=== PATIENT | female | born 1990 | race Caucasian/White ===

== ENCOUNTER 2019-12-13 20:06 | Emergency (ER) | payer MEDICAID, OTHER ==
[~2019-12-13] VITALS: Ht 157 cm; Wt 82.0 kg
[~2019-12-13 20:06] MED LIST: ACHYD1T PO; ALBU8.5H2 IH; AZIT-21 PO; AZIT250T81 PO; DCS100C PO; Docusate Sodium PO; FAMO-119 PO; HYDR-3156 PO; HYDR-3720 PO; HYDR-700 PO; HYDR25CA5 PO; IBP800T PO; Ibuprofen PO; LORA0.5T PO; MULT-241 PO; PRD20T PO; SULF1TAB35 PO; TRAM50TA2 PO
[2019-12-13] MEDS ORDERED: hydrALAZINE (APESOLINE) 20 MG/ML VIAL IV ONE ×2 (20:30→21:30)
[2019-12-13] MEDS ORDERED: hydrOXYzine (ATARAX) 10 MG TAB PO ONE (20:30)
[2019-12-13] MEDS ORDERED: hydrOXYzine (VISTARIL/ATARAX) 25 MG capsule/tablet ONE (20:31)
[2019-12-13] MEDS ORDERED: hydrOXYzine (VISTARIL/ATARAX) 25 MG capsule/tablet PO STA (20:41)
[2019-12-13 20:53] LABS: BASOPHILS % (AUTO) 0 % (0-10); EOSINOPHILS # (AUTO) 0.1 10^3/uL (0.0-0.3); EOSINOPHILS % (AUTO) 1 % (0-10); HEMATOCRIT 41 % (35-52); HEMOGLOBIN 13.9 G/DL (11.5-16.0); LYMPHOCYTES # (AUTO) 2.2 X 10^3 (1.0-4.0); LYMPHOCYTES % (AUTO) 19 % (12-44); MEAN CORPUSCULAR HEMOGLOBIN 29 PG (25-34); MEAN CORPUSCULAR HGB CONC 34 G/DL (32-36); MEAN CORPUSCULAR VOLUME 86 FL (80-99); MEAN PLATELET VOLUME 10.5 FL (7.4-10.4); MONOCYTES # (AUTO) 0.6 X 10^3 (0.0-1.0); MONOCYTES % (AUTO) 5 % (0-12); NEUTROPHILS # (AUTO) 8.7 X 10^3 (1.8-7.8); NEUTROPHILS % (AUTO) 74 % (42-75); PLATELET COUNT 245 10^3/uL (130-400); RED CELL DISTRIBUTION WIDTH 12.8 % (10.0-14.5); WHITE BLOOD COUNT 11.7 10^3/uL (4.3-11.0)
[2019-12-13 21:06] LABS: BILIRUBIN,URINE NEGATIVE (NEGATIVE); CLARITY,URINE CLEAR; COLOR,URINE YELLOW; GLUCOSE, URINE (UA) NEGATIVE (NEGATIVE); KETONES,URINE NEGATIVE (NEGATIVE); LEUKOCYTE ESTERASE ,URINE NEGATIVE (NEGATIVE); NITRITE,URINE NEGATIVE (NEGATIVE); PH,URINE 6.5 (5-9); PROTEIN,URINE NEGATIVE (NEGATIVE)
[2019-12-13 21:26] LABS: AMPHETAMINE SCREEN, URINE NEGATIVE (NEGATIVE); BACTERIA,URINE NEGATIVE /HPF; BARBITURATE SCREEN URINE NEGATIVE (NEGATIVE); BENZODIAZEPINES SCREEN URINE NEGATIVE (NEGATIVE); CANNABINOID SCREEN, URINE NEGATIVE (NEGATIVE); COCAINE SCREEN URINE NEGATIVE (NEGATIVE); METHADONE STAT NEGATIVE (NEGATIVE); METHAMPHETAMINE SCREEN URINE S NEGATIVE (NEGATIVE); OPIATE SCREEN URINE NEGATIVE (NEGATIVE); OXYCODONE STAT NEGATIVE (NEGATIVE); PROPOXYPHENE STAT NEGATIVE (NEGATIVE); SQUAMOUS EPITHELIAL CELL,UR 25-50 /HPF; TRICYCLIC ANTIDEPRESSANTS SCRE NEGATIVE (NEGATIVE)
[2019-12-13 21:33] LABS: ALANINE AMINOTRANSFERASE 19 U/L (0-55); ALBUMIN 4.2 GM/DL (3.2-4.5); ALKALINE PHOSPHATASE 105 U/L (40-136); BILIRUBIN,TOTAL 0.2 MG/DL (0.1-1.0); BUN/CREATININE RATIO 15; CARBON DIOXIDE 25 MMOL/L (21-32); CHLORIDE 103 MMOL/L (98-107); CREATININE SERUM 0.79 MG/DL (0.60-1.30); GFR ESTIMATED > 60; GLUCOSE 91 MG/DL (70-105); MAGNESIUM 1.9 MG/DL (1.6-2.4); POTASSIUM 3.4 MMOL/L (3.6-5.0); SODIUM 138 MMOL/L (135-145); TOTAL PROTEIN 7.7 GM/DL (6.4-8.2)
--- NOTE | 2019-12-13 21:35 | ED General ---
General Chief Complaint: Allergic Reaction Stated Complaint: ALLERGIC REACTION/TOOK EPI PEN INJ Nursing Triage Note: Pt ambulates to [facility] 10 with c/o allergic Rx to shrimp she consumed at dinner. Pt states she took 0.3mg IM EPI at 1940 when she noticed her "tongue swelling and throat felt like it was closing". Pt also states she took an albuterol inhaler she has prescribed for asthma as well. PT reports episodes of vomitus before and after EPI injection. Nursing Sepsis Screen: No Definite Risk Source of Information: Patient History of Present Illness Date Seen by Provider: Dec 13, 2019 Time Seen by Provider: 20:18 Initial Comments PT ARRIVES VIA POV FROM HOME STATES SHE THOUGHT SHE WAS HAVING AN ALLERGIC REACTION TO SHRIMP--HAS NEVER HAD PROBLEMS WITH SHRIMP OR ANY OTHER SHELLFISH BEFORE, BUT STATES SHE ATE THE WHOLE BAG OF OVER 30 SHRIMP FOR DINNER ( STATES SHE HAS NEVER EATEN THAT MUCH SHRIMP BEFORE ), IN ADDITION TO A FEW PORK CHOPS, STUFFING "AND SOME OTHER STUFF" STATES SHE THOUGHT HER THROAT AND TONGUE FELT LIKE THEY MIGHT STARTING TO SWELL A LITTLE AND SHE "FREAKED OUT" AND HAD AN ANXIETY ATTACK, STARTED VOMITING, AND THEN SHE USED AN EPI PEN. SYMPTOMS BEGAN AROUND 1900, AND USED EPI PEN AT 1920 STATES SHE TOOK A BUSPAR, BUT THREW IT UP STATES SHE HAS ASTHMA AND USED HER STEROID INHALER THIS AM PRESCRIBED, BUT STATES SHE HAS NOT USED HER RESCUE INHALER/ALBUTEROL "FOR A LONG TIME" AND REPORTS TO ME THAT SHE DID NOT USE IT TONIGHT. NO RASH OR ITCHING NO SWELLING TO FACE OR LIPS, HANDS OR FEET. HAS NEVER USED AN EPIPEN BEFORE STATES SHE IS ALLERGIC TO MT. DEW, CIPRO, COMPAZINE, AND PHENERGAN. STATES SHE "THINKS SHE'S ALLERGIC TO SOME FOODS, BUT HAS NO IDEA WHAT FOODS OR IF SHE IS TRULY ALLERGIC OR NOT" PCP: [facility] HAROLDO RODRIGUEZ Allergies and Home Medications Allergies Coded Allergies: ciprofloxacin (Verified Allergy, Unknown, NAUSEA, 12/13/19) ciprofloxacin HCl (Verified Allergy, Unknown, NAUSEA, 12/13/19) prochlorperazine edisylate (Verified Allergy, Unknown, 12/13/19) Pt. states she was on Compazine and Phenegran @ the same time and reported seizure, states wasn't sure which drug it was. prochlorperazine maleate (Verified Allergy, Unknown, 12/13/19) Pt. states she was on Compazine and Phenegran @ the same time and reported seizure, states Dr wasn't sure which drug it was. promethazine HCl (Verified Allergy, Unknown, 12/13/19) Pt. states on Compazine and Phenergan @ the same time, had a seizure and not sure which drug caused it. Home Medications Famotidine 20 Mg Tablet, 20 MG PO BID Prescribed by: SOCO QUEZADA on 01/05/162326 Hydroxyzine HCl 25 Mg Tablet, 25 MG PO DAILY, (Reported) Lorazepam 0.5 Mg Tablet, 0.5 MG PO TID PRN for ANXIETY Prescribed by: LEILANI HIGGINBOTHAM on 01/11/161919 Prednisone 20 Mg Tab, 40 MG PO DAILY Prescribed by: SOCO QUEZADA on 01/05/162326 Sulfamethoxazole/Trimethoprim 1 Each Tablet, 1 EACH PO BID Prescribed by: MILAN RUBIO on 01/05/16 1401 Patient Home Medication List Home Medication List Reviewed: Yes Review of Systems Review of Systems Constitutional: no symptoms reported EENTM: see HPI Respiratory: see HPI; No cough Cardiovascular: no symptoms reported Gastrointestinal: see HPI Genitourinary: no symptoms reported Musculoskeletal: no symptoms reported Skin: No pruritus, No rash Psychiatric/Neurological: See HPI, Anxiety Hematologic/Lymphatic: No Symptoms Reported Immunological/Allergic: see HPI Past Izxpaqy-Tahrlz-Bgntiz Hx Past Med/Social Hx: Reviewed and Corrections made Patient Social History Alcohol Use: Rarely Uses Recreational Drug Use: No Smoking Status: Never a Smoker 2nd Hand Smoke Exposure: No Recent Foreign Travel: No Contact w/Someone Who Travel: No Recent Infectious Disease Expo: No Recent Hopitalizations: No Physical Abuse: No Sexual Abuse: No Mistreated: No Fear: No Immunizations Up To Date Tetanus Booster (TDap): More than 5yrs PED Vaccines UTD: Yes Seasonal Allergies Seasonal Allergies: Yes Past Medical History Surgeries: Yes (EGD) Hysterectomy Respiratory: Yes Asthma Cardiac: No Neurological: No Reproductive Disorders: Yes 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 Genitourinary: No Gastrointestinal: Yes Gastroesophageal Reflux, Hiatal Hernia Musculoskeletal: No Endocrine: Yes Hypothyroidsim Cancer: No Psychosocial: Yes Anxiety Integumentary: No 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) Adverse Reaction/Blood Tranf: No Family Medical History Asthma G8 BROTHER (brother) Gastroenteritis 19 MOTHER (mother) Hypertension 19 MOTHER (mom) Kidney disease 19 MOTHER (mom) Respiratory disorder 19 MOTHER (copd) Seizure disorder 19 MOTHER (mom) Thyroid disease 19 MOTHER (mom) No Family History of: AIDS Abdominal aortic aneurysm [place]'s disease Alcoholism Alzheimer's disease Aphasia Arthritis Cancer of mouth Cardiovascular disease Cataracts Colon cancer Completed stroke Congenital disease Congenital heart disease Coronary thrombosis Cystic fibrosis Deafness or hearing loss Dementia Diabetes mellitus Drug abuse Dysphasia Fibrocystic disease of breast Glaucoma Headache disorder Hypercholesterolemia Infertility Myocardial infarction Neoplasm Not obtainable due to adoption Osteoporosis Parkinson's disease Prostate cancer Psychosocial problem Severe allergy Tuberculosis Visual disorder Physical Exam Vital Signs Vital Signs - First Documented 12/13/19 20:09 Temp 37.6 Pulse 85 Resp 20 B/P (MAP) 193/140 (157) Pulse Ox 98 O2 Delivery Room Air Capillary Refill : Less Than 3 Seconds Height, Weight, BMI Height: 5'2" Weight: 180lbs. 0.0oz. [id number]; 33.00 BMI Method:Stated General Appearance: Anxious, Obese HEENT: PERRL/EOMI, TMs Normal, Normal ENT Inspection, Pharynx Normal, Moist Mucous Membranes, Other (NO SWELLING TO LIPS, TONGUE OR OROPHARYNX. 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 Norm as Tested, Other (ANXIOUS) Skin: Normal Color, Warm/Dry; No Rash Progress/Results/Core Measures Suspected Sepsis Recent Fever Within 48 Hours: No Infection Criteria Present: None New/Unexplained Altered Menta: No Sepsis Screen: No Definite Risk SIRS Temperature: Pulse: 85 Respiratory Rate: 20 Laboratory Tests 12/13/19 20:45: White Blood Count 11.7H Blood Pressure 193 /140 Mean: 157 Laboratory Tests 12/13/19 20:45: Platelet Count 245 12/13/19 21:03: Creatinine 0.79, Total Bilirubin 0.2 Results/Orders Lab Results Laboratory Tests Test 12/13/19 20:45 12/13/19 20:55 12/13/19 21:03 12/13/19 21:13 Range/Units White Blood Count 11.7 H 4.3-11.0 10^3/uL Red Blood Count 4.77 4.35-5.85 10^6/uL Hemoglobin 13.9 11.5-16.0 G/DL Hematocrit 41 35-52 % Mean Corpuscular Volume 86 80-99 FL Mean Corpuscular Hemoglobin 29 25-34 PG Mean Corpuscular Hemoglobin Concent 34 32-36 G/DL Red Cell Distribution Width 12.8 10.0-14.5 % Platelet Count 245 130-400 10^3/uL Mean Platelet Volume 10.5 H 7.4-10.4 FL Neutrophils (%) (Auto) 74 42-75 % Lymphocytes (%) (Auto) 19 12-44 % Monocytes (%) (Auto) 5 0-12 % Eosinophils (%) (Auto) 1 0-10 % Basophils (%) (Auto) 0 0-10 % Neutrophils # (Auto) 8.7 H 1.8-7.8 X 10^3 Lymphocytes # (Auto) 2.2 1.0-4.0 X 10^3 Monocytes # (Auto) 0.6 0.0-1.0 X 10^3 Eosinophils # (Auto) 0.1 0.0-0.3 10^3/uL Basophils # (Auto) 0.0 0.0-0.1 10^3/uL Urine Color YELLOW Urine Clarity CLEAR Urine pH 6.5 5-9 Urine Specific Ramona 1.015 L 1.016-1.022 Urine Protein NEGATIVE NEGATIVE Urine Glucose (UA) NEGATIVE NEGATIVE Urine Ketones NEGATIVE NEGATIVE Urine Nitrite NEGATIVE NEGATIVE Urine Bilirubin NEGATIVE NEGATIVE Urine Urobilinogen 0.2 < = 1.0 MG/DL Urine Leukocyte Esterase NEGATIVE NEGATIVE Urine RBC (Auto) NEGATIVE NEGATIVE Urine RBC NONE /HPF Urine WBC NONE /HPF Urine Squamous Epithelial Cells 25-50 H /HPF Urine Crystals NONE /LPF Urine Bacteria NEGATIVE /HPF Urine Casts NONE /LPF Urine Mucus NEGATIVE /LPF Urine Culture Indicated NO Urine Opiates Screen NEGATIVE NEGATIVE Urine Oxycodone Screen NEGATIVE NEGATIVE Urine Methadone Screen NEGATIVE NEGATIVE Urine Propoxyphene Screen NEGATIVE NEGATIVE Urine Barbiturates Screen NEGATIVE NEGATIVE Ur Tricyclic Antidepressants Screen NEGATIVE NEGATIVE Urine Phencyclidine Screen NEGATIVE NEGATIVE Urine Amphetamines Screen NEGATIVE NEGATIVE Urine Methamphetamines Screen NEGATIVE NEGATIVE Urine Benzodiazepines Screen NEGATIVE NEGATIVE Urine Cocaine Screen NEGATIVE NEGATIVE Urine Cannabinoids Screen NEGATIVE NEGATIVE Sodium Level 138 135-145 MMOL/L Potassium Level 3.4 L 3.6-5.0 MMOL/L Chloride Level 103 98-107 MMOL/L Carbon Dioxide Level 25 21-32 MMOL/L Anion Gap 10 5-14 MMOL/L Blood Urea Nitrogen 12 7-18 MG/DL Creatinine 0.79 0.60-1.30 MG/DL Estimat Glomerular Filtration Rate > 60 BUN/Creatinine Ratio 15 Glucose Level 91 70-105 MG/DL Calcium Level 9.0 8.5-10.1 MG/DL Corrected Calcium 8.8 8.5-10.1 MG/DL Magnesium Level 1.9 1.6-2.4 MG/DL Total Bilirubin 0.2 0.1-1.0 MG/DL Aspartate Amino Transf (AST/SGOT) 19 5-34 U/L Alanine Aminotransferase (ALT/SGPT) 19 0-55 U/L Alkaline Phosphatase 105 40-136 U/L Total Protein 7.7 6.4-8.2 GM/DL Albumin 4.2 3.2-4.5 GM/DL TSH Ness Testing 0.40 0.35-4.94 UIU/ML Acetaminophen Level < 10 L 10-30 UG/ML Serum Alcohol < 10 <10 MG/DL Serum Test, Qualitative NEGATIVE NEGATIVE My Orders Orders - ROEL CADET DO Ed Iv/Invasive Line Start (12/13/19 20:29) Monitor-Rhythm Ecg Trace Only (12/13/19 20:29) Acetaminophen (12/13/19 20:29) Alcohol (12/13/19 20:29) Cbc With Automated Diff (12/13/19 20:29) Comprehensive Metabolic Panel (12/13/19 20:29) Drug Screen Stat (Urine) (12/13/19 20:29) Hcg,Qualitative Serum (12/13/19 20:29) Magnesium (12/13/19 20:29) Thyroid Analyzer (12/13/19 20:29) Ua Culture If Indicated (12/13/19 20:29) Hydralazine Injection (Apresoline Inject (12/13/19 20:30) Hydroxyzine Oral (Atarax Tablet) (12/13/19 20:30) Hydroxyzine Cap/Tab (Vistaril) (12/13/19 20:31) Hydroxyzine Cap/Tab (Vistaril) (12/13/19 20:41) Hydralazine Injection (Apresoline Inject (12/13/19 21:30) Medications Given in ED Current Medications Medications Dose Ordered Sig/Janeth Route Start Time Stop Time Status Last Admin Dose Admin Hydralazine HCl 10 mg ONCE ONCE IV 12/13/19 20:30 12/13/19 20:31 DC 12/13/19 20:39 10 MG Hydralazine HCl 10 mg ONCE ONCE IV 12/13/19 21:30 12/13/19 21:31 DC 12/13/19 22:08 10 MG Vital Signs/I&O 12/13/19 20:09 Temp 37.6 Pulse 85 Resp 20 B/P (MAP) 193/140 (157) Pulse Ox 98 O2 Delivery Room Air Capillary Refill : Less Than 3 Seconds Blood Pressure Mean: 157 Progress Note : Progress Note GIVEN HYDROXYZINE, AND HYDRALAZINE. PT STATES SHE FEELS MUCH BETTER BP DOWN AT DISMISSAL ADVISED OF NEED FOR FOLLOW UP WITH HER PCP FOR BLOOD PRESSURE AT DISMISSAL, PT STATES SHE HAS HYDROXYZINE AT HOME, BUT HAS NOT TAKEN ANY TODAY OR RECENTLY Departure Impression Primary Impression: Anxiety Additional Impression: Episode of hypertension Disposition: HOME, SELF-CARE Condition: Improved Departure-Patient Inst. Referrals: [facility] (PCP/Family) Primary Care Physician Patient Instructions: Anxiety, Adult (DC), Controlling Your Blood Pressure Through Lifestyle, High Blood Pressure (DC) Add. Discharge Instructions: HOME, REST TAKE YOUR HOME MEDICATIONS PRESCRIBED FOLLOW UP WITH YOUR DR THIS WEEK FOR FURTHER CARE RETURN TO ER IF WORSE All discharge instructions reviewed with patient and/or family. Voiced understanding. ROEL CADET DO Dec 13, 2019 21:35
[2019-12-13 21:52] LABS: ACETAMINOPHEN < 10 UG/ML (10-30)
[2019-12-13 22:36] VITALS: BP 159/101
== END 2019-12-13 22:37 | disposition home or self-care (01) ==
LOC: EDUNIT# 20:06 → ER 20:07
DX: F41.9 Anxiety disorder, unspecified (principal); I10 Essential (primary) hypertension; J45.909 Unspecified asthma, uncomplicated; K21.9 Gastro-esophageal reflux disease without esophagitis; Z88.1 Allergy status to other antibiotic agents; Z88.8 Allergy status to other drugs, medicaments and biological substances; Z79.52 Long term (current) use of systemic steroids
CPT/HCPCS: 36415; 80053; 80306; 80320; 80329; 81000; 83735; 84443; 84703; 85025; 93041